=== PATIENT | male | born 1960 | race Two or more races ===

== ENCOUNTER 2021-01-01 19:13 | Emergency (ER) | payer OTHER ==
[~2021-01-01] VITALS: Ht 180.3 cm; Wt 63.5 kg
[2021-01-01] MEDS ORDERED: CIPRO500 MG PO (19:40)
== END 2021-01-01 20:11 | disposition home or self-care (01) ==
LOC: ER 19:13
DX: S80.272A Other superficial bite of left knee, initial encounter (principal); W54.0XXA Bitten by dog, initial encounter; Y93.89 Activity, other specified; Y92.89 Other specified places as the place of occurrence of the external cause; Y99.8 Other external cause status